=== PATIENT | male | born 1990 | race African-American/Black ===

== ENCOUNTER 2021-10-26 09:18 | Emergency (ER) | payer SELFPAY ==
[~2021-10-26] VITALS: Ht 165.1 cm; Wt 59.0 kg
[2021-10-26] MEDS ORDERED: IBUPROFEN 400MG TABLET PO ONE (09:45)
[2021-10-26] MEDS ORDERED: IBUP-2028 MT (11:02)
[2021-10-26 11:22] VITALS: BP 116/75
== END 2021-10-26 11:24 | disposition home or self-care (01) ==
LOC: ER 09:18
DX: J02.9 Acute pharyngitis, unspecified (principal)
CPT/HCPCS: 87070; 87430; 99283